=== PATIENT | female | born 1990 | race Caucasian/White ===

== ENCOUNTER 2020-01-17 02:54 | Emergency (ER) | payer OTHER ==
[2020-01-17] MEDS ORDERED: HYDROcod/ACETAM 5/325 MG TABLET PO STA (03:17)
[2020-01-17 03:22] LABS: BILIRUBIN,URINE NEGATIVE (NEGATIVE); GLUCOSE, URINE (UA) NEGATIVE (NEGATIVE); KETONES,URINE (UA) 15 mg/dL (NEGATIVE); LEUKOCYTE ESTERASE, URINE NEGATIVE (NEGATIVE); NITRITE,URINE NEGATIVE (NEGATIVE); OCCULT BLOOD,URINE SMALL (NEGATIVE); PH,URINE 5.5 PH (5.0-7.5); PROTEIN,URINE NEGATIVE (NEGATIVE); UROBILINOGEN,URINE 0.2 (NORMAL) E.U./dL (NORMAL)
[2020-01-17 03:23] LABS: CLARITY,URINE CLEAR (CLEAR)
[2020-01-17 03:24] LABS: HCG UR QUAL NEGATIVE
[2020-01-17 03:32] LABS: BACTERIA,URINE None Seen /HPF (None Seen); RBC,URINE 0-5 /HPF (0-5); SQUAMOUS EPITHELIAL CELL,UR RARE Squamous (<= Few)
--- NOTE | 2020-01-17 03:32 | ED Physician Documentation ---
PD HPI BACK PAIN - Stated complaint Stated Complaint: BACK PX - Chief complaint Chief Complaint: Back Pain - History obtained from History obtained from: Patient - History of Present Illness Timing - onset: How many days ago (4) Timing - duration: Hours (onset of lumbar area back pain while turning in bed. Has had some similar back pains at times, but this is stronger pain. Had seen PCP for annual exam and labs last week and was told her kidney function was off (creatinine 1.4) so concern about kidneys causing the pain.) Timing - details: Abrupt onset, Still present, Waxing and waning Location: Lower, Right Quality: Pain, Spasm, Aching. No: Sharp, Throbbing Associated symptoms: No: Fever, Weakness, Numbness Worsened by: Movement, Twisting Contributing factors: Lifting (she works at [employer] so lifting and bending a lot. No particular abrupt injury but has had low back pain for past several weeks, and now worse just this evening at home, without new injury nor other symptoms.) Similar symptoms before: No diagnosis (intermittently the past month or so.) Recently seen: Clinic (routine PAP/annual exam last week.) Review of Systems Constitutional: denies: Fever, Chills Nose: denies: Rhinorrhea / runny nose, Congestion Throat: denies: Sore throat Cardiac: denies: Chest pain / pressure Respiratory: denies: Dyspnea, Cough GI: denies: Abdominal Pain, Vomiting, Diarrhea : denies: Dysuria, Frequency, Incontinent, Hematuria, Discharge Skin: denies: Rash, Lesions Musculoskeletal: reports: Back pain. denies: Neck pain, Extremity pain, Extremity swelling Neurologic: denies: Focal weakness, Numbness PD PAST MEDICAL HISTORY - Past Medical History Cardiovascular: None Respiratory: None Neuro: None Endocrine/Autoimmune: None - Present Medications Home Medications: Ambulatory Orders Medication Instructions Recorded Confirmed Hydrocodone/Acetaminophen 1 each PO Q6H PRN #20 tablet 01/17/20 [Hydrocodone-Acetamin 5-325 mg] Tizanidine HCl 4 mg PO TID PRN #25 capsule 01/17/20 dexAMETHasone [Decadron] 4 mg PO DAILY #5 tablet 01/17/20 - Allergies Allergies/Adverse Reactions: Allergies Allergy/AdvReac Type Severity Reaction Status Date / Time Penicillins Allergy Rash Verified 01/17/20 03:03 - Living Situation Living Situation: reports: With spouse/s.o. Living Arrangement: reports: At home PD ED PE NORMAL - Vitals Vital signs reviewed: Yes - General General: Alert and oriented X 3, Well developed/nourished, Other (dos appear in some pain for low back. ) - Neck Neck: Supple, no meningeal sign, No adenopathy - Cardiac Cardiac: RRR, No murmur - Respiratory Respiratory: Clear bilaterally - Abdomen Abdomen: Normal bowel sounds, Soft, Non tender, Non distended - Back Back: No CVA TTP, No spinal TTP, Other (some tender in right lower to mid lumbar muscles. No rash nor sores. ) - Derm Derm: Normal color, Warm and dry, No rash - Neuro Neuro: Alert and oriented X 3, No motor deficit, No sensory deficit, Normal speech, Other (normal knee reflexes.) Eye Opening: Spontaneous Motor: Obeys Commands Verbal: Oriented GCS Score: 15 - Psych Psych: Normal mood, Normal affect Results - Vitals Vitals: Vital Signs - 24 hr 01/17/20 01/17/20 03:00 04:39 Temperature 36.5 C 36.4 C L Heart Rate 82 63 Respiratory 16 18 Rate Blood Pressure 113/68 116/76 O2 Saturation 97 95 Oxygen O2 Source Room air - Labs Labs: Laboratory Tests 01/17/20 01/17/20 01/17/20 03:05 03:05 03:23 WBC 8.6 RBC 4.24 Hgb 13.2 Hct 38.5 MCV 90.8 MCH 31.1 H MCHC 34.3 RDW 13.6 Plt Count 287 MPV 10.7 Neut # (Auto) 4.8 Lymph # (Auto) 3.2 [place] # (Auto) 0.4 Eos # (Auto) 0.1 Baso # (Auto) 0.1 Absolute Nucleated RBC 0.00 Nucleated RBC % 0.0 ESR Sodium Potassium Chloride Carbon Dioxide Anion Gap BUN Creatinine Estimated GFR (MDRD) Glucose Calcium Total Bilirubin AST ALT Alkaline Phosphatase C-Reactive Protein Total Protein Albumin Globulin Albumin/Globulin Ratio Lipase Urine Color YELLOW Urine Clarity CLEAR Urine pH 5.5 Ur Specific [place] 1.010 1.010 Urine Protein NEGATIVE Urine Glucose (UA) NEGATIVE Urine Ketones 15 H Urine Occult Blood SMALL H Urine Nitrite NEGATIVE Urine Bilirubin NEGATIVE Urine Urobilinogen 0.2 (NORMAL) Ur Leukocyte Esterase NEGATIVE Urine RBC 0-5 Urine WBC 0-3 Ur Squamous Epith Cells RARE Squamous Urine Bacteria None Seen Ur Microscopic Review INDICATED Urine Culture Comments NOT INDICATED Urine HCG, Qual NEGATIVE 01/17/20 01/17/20 03:23 03:23 WBC RBC Hgb Hct MCV MCH MCHC RDW Plt Count MPV Neut # (Auto) Lymph # (Auto) [place] # (Auto) Eos # (Auto) Baso # (Auto) Absolute Nucleated RBC Nucleated RBC % ESR 24 H Sodium 138 Potassium 3.6 Chloride 106 Carbon Dioxide 20 L Anion Gap 12.0 BUN 15 Creatinine 0.7 Estimated GFR (MDRD) 98 Glucose 106 H Calcium 9.8 Total Bilirubin 0.7 AST 25 ALT 41 Alkaline Phosphatase 66 C-Reactive Protein 1.0 Total Protein 8.3 H Albumin 4.8 Globulin 3.5 Albumin/Globulin Ratio 1.4 Lipase 22 Urine Color Urine Clarity Urine pH Ur Specific [place] Urine Protein Urine Glucose (UA) Urine Ketones Urine Occult Blood Urine Nitrite Urine Bilirubin Urine Urobilinogen Ur Leukocyte Esterase Urine RBC Urine WBC Ur Squamous Epith Cells Urine Bacteria Ur Microscopic Review Urine Culture Comments Urine HCG, Qual - Rads (name of study) KUB CT Radiology: Prelim report reviewed (no stones, normal osseous structures, no acute intraabd process. ), See rad report PD MEDICAL DECISION MAKING - ED course Complexity details: reviewed results (Renal function good here. CT does not show acute process. Presume muscular back pain. ), considered differential (Given report of recent renal insufficiency and back pain, is reasonable to check CT for kidney stones, hydronephrosis, and also this will eval for other back pain causes. ), d/w patient Departure - Departure Disposition: 01 Home, Self Care Clinical Impression: Low back pain Qualifiers: Chronicity: acute Back pain laterality: bilateral Sciatica presence: with sciatica Sciatica laterality: sciatica laterality unspecified Qualified Code(s): M54.40 - Lumbago with sciatica, unspecified side Condition: Stable Record reviewed to determine appropriate education?: Yes Instructions: ED Low Back Pain Injury Follow-Up: JELENA SMITH DO [Primary Care Provider] - Prescriptions: dexAMETHasone [Decadron] 4 mg PO DAILY #5 tablet Hydrocodone/Acetaminophen [Hydrocodone-Acetamin 5-325 mg] 1 each PO Q6H PRN #20 tablet PRN Reason: Pain Tizanidine HCl 4 mg PO TID PRN #25 capsule PRN Reason: Spasms Comments: Your kidney function appears good here. I printed copies of the results for you. Even though, since you had worse kidney function by blood test last week, would still want to be careful about too much anti-inflammatories of the nonsteroidal type (NSAIDs). You could use some ibuprofen or naproxen occasionally for your back. Otherwise we can treat it with steroid and anti- inflammatories in conjunction with muscle relaxants and adding Tylenol or hydrocodone if needed for worse pain. Physical treatments such as heat and stretching, massage, chiropractic are also good for low back pain 2. Off work today and possibly tomorrow to allow your back to improve some. Follow-up with your primary care regarding further treatments. Forms: Activity restrictions Discharge Date/Time: 01/17/20 04:41
[2020-01-17 03:35] LABS: BASOPHILS # (AUTO) 0.1 10^3/uL (0.0-0.1); BASOPHILS % (AUTO) 0.7 %; EOSINOPHILS # (AUTO) 0.1 10^3/uL (0.0-0.7); EOSINOPHILS % (AUTO) 0.7 %; HGB - HEMOGLOBIN 13.2 g/dL (12.0-16.0); LYMPHOCYTES # (AUTO) 3.2 10^3/uL (1.5-3.5); LYMPHOCYTES % (AUTO) 37.2 %; MEAN CORPUSCULAR HEMOGLOBIN 31.1 pg (27.0-31.0); MEAN CORPUSCULAR HGB CONC 34.3 g/dL (32.0-36.0); MEAN CORPUSCULAR VOLUME 90.8 fL (81.0-99.0); MEAN PLATELET VOLUME 10.7 fL (7.9-10.8); MONOCYTES # (AUTO) 0.4 10^3/uL (0.0-1.0); MONOCYTES % (AUTO) 5.1 %; NEUTROPHILS # (AUTO) 4.8 10^3/uL (1.5-6.6); PLT - PLATELET COUNT 287 10^3/uL (130-450); RED BLOOD COUNT 4.24 10^6/uL (4.20-5.40); RED CELL DISTRIBUTION WIDTH 13.6 % (12.0-15.0); WHITE BLOOD COUNT 8.6 x10^3/uL (4.8-10.8)
[2020-01-17 03:49] LABS: ALBUMIN 4.8 g/dL (3.2-5.5); ALBUMIN/GLOBULIN RATIO 1.4 (1.0-2.2); BILIRUBIN,TOTAL 0.7 mg/dL (0.2-1.0); CALCIUM 9.8 mg/dL (8.5-10.3); CREATININE 0.7 mg/dL (0.4-1.0); TOTAL PROTEIN 8.3 g/dL (6.7-8.2)
[2020-01-17] MEDS ORDERED: methocarbamoL 500 MG TABLET PO STA (04:26)
[2020-01-17] MEDS ORDERED: CHERRY SYRUP 10 ML UDC PO ONE (04:26)
[2020-01-17] MEDS ORDERED: DEXAMETHASONE 10 MG/ML VIAL PO STA (04:26)
[2020-01-17 04:40] VITALS: BP 116/76
--- NOTE | 2020-01-17 08:57 | CT Report ---
PROCEDURE: Abdomen/Pelvis WO INDICATIONS: low back/right back to abd pain TECHNIQUE: Noncontrast 5 mm thick sections acquired from the diaphragms to the symphysis. 5 mm coronal and sagi ttal reformats were then performed. For radiation dose reduction, the following was used: automated exposure control, adjustment of mA and/or kV according to patient size. COMPARISON: None. FINDINGS: Image quality: Excellent. ABDOMEN: Lung bases: Lung bases are clear. Heart size is normal. Solid organs: Liver and spleen are normal in size. Gallbladder is unremarkable Pancreas is normal in contours. No adrenal nodules. Kidneys are normal in size, without hydronephrosis or nephrolithia sis. Peritoneum and bowel: Unenhanced bowel loops demonstrate normal wall thickness and caliber. No free fluid or air. Normal appendix. Nodes and vessels: No retroperitoneal or mesenteric adenopathy by size criteria. Aorta and inferior vena cava are normal in caliber. Miscellaneous: No ventral hernias. PELVIS: Genitourinary: Bladder wall thickness is normal. Miscellaneous: No inguinal hernias or adenopathy. Bones: No suspicious bony lesions. No vertebral body compression fractures. IMPRESSION: CT abdomen and pelvis without acute abnormalities to explain patient's symptoms. No evidence for urol ithiasis or obstructive uropathy. Normal appendix. No significant discrepancy with initial interpretation by overnight radiologist. Reviewed by: Maurice Gee MD on 01/17/2020 8:55 AM PDT Approved by: Maurice Gee MD on 01/17/2020 8:55 AM PDT Station ID: [id number]
== END 2020-01-17 04:41 | disposition home or self-care (01) ==
LOC: ED 02:54
DX: M54.40 Lumbago with sciatica, unspecified side (principal)
CPT/HCPCS: 36415; 74176; 80053; 81001; 81025; 83690; 85025; 85651; 86140; 99284; A9270; 81003; 87086

== ENCOUNTER 2020-04-16 23:16 | Emergency (ER) | payer OTHER ==
--- NOTE | 2020-04-16 23:48 | ED Physician Documentation ---
PD HPI BACK PAIN - Stated complaint Stated Complaint: LOWER BACK PX - Chief complaint Chief Complaint: Back Pain - History obtained from History obtained from: Patient - History of Present Illness Timing - onset: How many days ago (few) Timing - duration: Days (few) Timing - details: Gradual onset Location: Lower, Right Quality: Pain, Spasm Associated symptoms: Numbness (feeling of numbness lateral right thigh down to knee. No weakness.). No: Fever, Weakness, Incontinent of urine Worsened by: Movement, Twisting, Palpation (right lower back muscle) Contributing factors: Lifting (she has been doing some lifting and carrying of boxes. No abrupt onset of pain but has gotten worse over several days.) Similar symptoms before: No diagnosis (occasion back pains in the past. No chronic/ongoing problems.) Recently seen: Not recently seen Review of Systems Constitutional: denies: Fever, Chills Nose: denies: Rhinorrhea / runny nose, Congestion Throat: denies: Sore throat Respiratory: denies: Cough : denies: Incontinent Skin: denies: Rash, Lesions Neurologic: reports: Numbness (feeling of numbness, though sensation still present right posterior thigh to knee.). denies: Focal weakness PD PAST MEDICAL HISTORY - Past Medical History Past Medical History: Yes Cardiovascular: None Respiratory: None Neuro: None Endocrine/Autoimmune: None Musculoskeletal: Chronic back pain, Other - Past Surgical History Past Surgical History: No - Present Medications Home Medications: Ambulatory Orders Medication Instructions Recorded Confirmed HYDROcod/ACETAM 5/325 [[place] 5/325] 1 ea PO Q6H PRN #18 tablet 04/17/20 Ibuprofen [Motrin] 600 mg PO TID PRN #25 tab 04/17/20 tiZANidine [Zanaflex] 4 mg PO Q8H PRN #25 tablet 04/17/20 - Allergies Allergies/Adverse Reactions: Allergies Allergy/AdvReac Type Severity Reaction Status Date / Time Penicillins Allergy Rash Verified 04/16/20 23:28 - Social History Does the pt smoke?: No Smoking Status: Never smoker Does the pt drink ETOH?: No Does the pt have substance abuse?: No - Immunizations Immunizations are current?: Yes - POLST Patient has POLST: No PD ED PE NORMAL - Vitals Vital signs reviewed: Yes - General General: Alert and oriented X 3, Well developed/nourished, Other (appears in discomfort with lower back movement.) - Abdomen Abdomen: Soft, Non tender - Back Back: No CVA TTP, No spinal TTP (tender right lateral muscles in low back just above iliac crest, with focal muscle tenderness. ) - Derm Derm: Normal color, Warm and dry, No rash - Neuro Neuro: Alert and oriented X 3, No motor deficit, No sensory deficit (has normal sensation in thigh and lower leg.), Normal speech, Other (normal knee reflexes. ) Results - Vitals Vitals: Vital Signs - 24 hr 04/16/20 04/16/20 04/17/20 23:28 23:32 00:23 Temperature 36.7 C 36.7 C 36.7 C Heart Rate 69 69 65 Respiratory 16 16 16 Rate Blood Pressure 103/68 103/68 108/69 O2 Saturation 100 100 100 Oxygen O2 Source Room air PD MEDICAL DECISION MAKING - ED course Complexity details: re-evaluated patient (improved with meds here. Given local injection at right low back muscle focal tenderness with Kenalog and bupivicaine. Also Toradol IM and PO meds. ), considered differential (low back muscular pain without red flags. ), d/w patient Departure - Departure Disposition: Home, Self Care Clinical Impression: Low back strain Qualifiers: Encounter type: initial encounter Qualified Code(s): S39.012A - Strain of muscle, fascia and tendon of lower back, initial encounter Condition: Stable Record reviewed to determine appropriate education?: Yes Instructions: ED Sprain Strain Lumbar, ED Sciatica Follow-Up: JELENA SMITH DO [Primary Care Provider] - Prescriptions: Ibuprofen [Motrin] 600 mg PO TID PRN #25 tab PRN Reason: Pain HYDROcod/ACETAM 5/325 [[place] 5/325] 1 ea PO Q6H PRN #18 tablet PRN Reason: Pain tiZANidine [Zanaflex] 4 mg PO Q8H PRN #25 tablet PRN Reason: Spasms Comments: Heat for the low back to decrease stiffness and spasm. Gentle stretching and light activity is good. Avoid lifting bending and carrying for several days until improving. Anti-inflammatories of ibuprofen with food 3 times a day for the next several days to a week. Add tizanidine muscle relaxant for stiffness and spasms. To that add Tylenol or hydrocodone every 4-6 hours for worse pain. Recheck if not improving well over the next several days to week. Forms: Activity restrictions Discharge Date/Time: 04/17/20 00:23
[2020-04-17] MEDS ORDERED: methocarbamoL 500 MG TABLET PO STA
[2020-04-17] MEDS ORDERED: TRIAMCINOLONE 40 MG/ML VIAL IM STA
[2020-04-17] MEDS ORDERED: HYDROcod/ACETAM 5/325 MG TABLET PO STA
[2020-04-17] MEDS ORDERED: KETOROLAC 30 MG/ML VIAL IM STA
[2020-04-17 00:24] VITALS: BP 108/69
== END 2020-04-17 00:23 | disposition home or self-care (01) ==
LOC: ED 23:16
DX: S39.012A Strain of muscle, fascia and tendon of lower back, initial encounter (principal); X50.0XXA Overexertion from strenuous movement or load, initial encounter; Y93.89 Activity, other specified
CPT/HCPCS: 96372; 99283; 99284; A9270

== ENCOUNTER 2021-04-01 09:39 | Outpatient (CLI) | payer OTHER | END 2021-04-01 23:59 | disposition home or self-care (01) | LOC: LAB.N 09:39 | PROVIDERS: ATTEND Family Medicine | DX: R53.83 Other fatigue (principal); R53.81 Other malaise; Z20.822 Contact with and (suspected) exposure to COVID-19 ==